=== PATIENT | female | born 2000 | race Caucasian/White ===

== ENCOUNTER 2023-05-30 10:13 | Emergency (ER) | payer BC ==
[~2023-05-30] VITALS: Ht 160 cm; Wt 63.6 kg
[2023-05-30 10:19] VITALS: TEMP 98.5
[2023-05-30] MEDS ORDERED: LAMO-24 PO (10:43)
[2023-05-30] MEDS ORDERED: ACETAMINOPHEN 500 MG TABLET PO ONE (10:45)
[2023-05-30 11:03] VITALS: BP 122/80; PULSE 88; RESP 18
== END 2023-05-30 12:47 | disposition home or self-care (01) ==
LOC: EMS 10:15
DX: G40.909 Epilepsy, unspecified, not intractable, without status epilepticus (principal)
CPT/HCPCS: 99282; 99283